=== PATIENT | female | born 1980 | race African-American/Black ===

== ENCOUNTER 2021-01-01 15:01 | Observation (INO) ==
[2021-01-01 16:58] LABS: Basophils % 0.1 % (0.0-0.8); Eosinophils % 0.6 % (0.00-10.9); Immature Granulocytes % 0.6 %; Immature Granulocytes Absolute 0.04 #; Lymphocytes # 1.2 10*3/uL (1.4-4.0); Lymphocytes % 17.3 % (21.3-54.2); Mean Corpuscular HGB Conc 24.8 GM/DL (32-36); Mean Corpuscular Volume 67.3 FL (87-102); Mean Platelet Volume 9.4 FL (9.6-12.0); Monocytes % 11.7 % (1.7-12.7); NRBC # 0.09 10*3/uL; Neutrophils % 69.7 % (38.7-73.9); Platelet Count 903 T/CUMM (130-400); Red Blood Count 1.68 MC/CUMM (3.8-5.5); Red Cell Distribution Width 36.7 % (9.3-17.3)
[2021-01-01 17:05] LABS: Hematocrit 11.3 VOL% (35.7-47.0); INR 1.1; PT Patient Result 12.4 SECS (10.5-12.0)
[2021-01-01 17:08] LABS: Hemoglobin 2.8 GM/DL (12.0-16.0)
[2021-01-01 17:13] LABS: Albumin 3.6 G/DL (3.4-5.0); Bilirubin,Total 0.4 MG/DL (0.20-1.00); Calcium 8.6 MG/DL (8.5-10.1); Osmolality,Calculated 274.5 MOS/KG (273-304); Potassium 3.8 MMOL/L (3.5-5.1); Total Protein 7.5 G/DL (6.4-8.2)
[2021-01-01] MEDS ORDERED: ONDANSETRON 4 MG/2 ML VIAL IV PRN (17:21)
[2021-01-01] MEDS ORDERED: GLUCAGON 1 MG VIAL IM PRN (17:21)
[2021-01-01] MEDS ORDERED: ACETAMINOPHEN 325 MG TABLET PO PRN (17:21)
[2021-01-01] MEDS ORDERED: DEXTROSE 50% 25 GM/50 ML VIAL IV PRN (17:21)
[2021-01-01] MEDS ORDERED: SODIUM CHLORIDE 0.9% 1,000 ML IV PRN ×3 (17:24→22:02)
[2021-01-01 17:41] LABS: Lymphocytes 21 % (20-55); Microcytosis 1+; Segmented Neutrophils 70 % (50-85); Total Cells Counted 100
[2021-01-01 17:42] LABS: Elliptocytes Few; Hypochromasia 3+; Target Cells 1+
[2021-01-01 17:43] LABS: Platelet Estimate Increased; Schistocytes 1+; Tear Drop Cells Few
[2021-01-01] MEDS ORDERED: NICOTINE 7 MG/24 HR PATCH TRANSDERM PRN (17:58)
[2021-01-01] MEDS ORDERED: chlordiazePOXIDE 10 MG CAPSULE PO PRN (17:58)
[2021-01-01] MEDS: SODIUM CHLORIDE 0.9% 1,000 ML IV SCH (18:50)
[2021-01-01 21:17] LABS: Hematocrit 20.9 VOL% (35.7-47.0)
[2021-01-01 21:26] LABS: Hemoglobin 6.1 GM/DL (12.0-16.0)
[2021-01-02] MEDS ORDERED: SODIUM CHLORIDE 0.9% 1,000 ML IV PRN (08:21)
[2021-01-02] MEDS: FOLIC ACID 1 MG TABLET PO SCH (09:28)
[2021-01-02] MEDS: THIAMINE 100 MG TABLET PO SCH (09:28)
[2021-01-02] MEDS: PANTOPRAZOLE 40 MG TABLET PO SCH (09:28)
[2021-01-02 10:02] LABS: Basophils # 0.1 10*3/uL (0.0-0.2); Basophils % 1.8 % (0.0-0.8); Eosinophils # 0.1 10*3/uL (0.0-0.87); Hematocrit 27.7 VOL% (35.7-47.0); Immature Granulocytes % 0.4 %; Immature Granulocytes Absolute 0.03 #; Lymphocytes # 1.4 10*3/uL (1.4-4.0); Lymphocytes % 18.3 % (21.3-54.2); Mean Corpuscular HGB Conc 30.7 GM/DL (32-36); Mean Corpuscular Volume 79.6 FL (87-102); Mean Platelet Volume 9.4 FL (9.6-12.0); NRBC # 0.17 10*3/uL; Neutrophils % 67.5 % (38.7-73.9); Platelet Count 756 T/CUMM (130-400); Red Cell Distribution Width 27.6 % (9.3-17.3); White Blood Count 7.7 T/CUMM (4-12)
[2021-01-02 10:06] LABS: Hemoglobin 8.5 GM/DL (12.0-16.0); Red Blood Count 3.48 MC/CUMM (3.8-5.5)
[2021-01-02 10:26] LABS: % Iron Saturation 3.4 % (18-50); Ferritin 5.9 ng/mL (8-252)
[2021-01-02 10:30] LABS: Folate 7.71 NG/ML (5.38-24.0); Vitamin B12 330 PG/ML (211-911)
[2021-01-02 10:34] LABS: Calcium 8.5 MG/DL (8.5-10.1); Osmolality,Calculated 276.5 MOS/KG (273-304); Potassium 3.5 MMOL/L (3.5-5.1)
[2021-01-02 11:03] LABS: Sedimentation Rate-Westergren 21 MM/HR (0-20)
[2021-01-02] MEDS: SODIUM CHLORIDE 0.9% 1,000 ML IV SCH (15:17)
[2021-01-02] MEDS ORDERED: ALUM/MAG/SIMETH/LIDO VISC 1:1 30 ML BOTTLE PO ONE (15:56)
[2021-01-02] MEDS ORDERED: FUROSEMIDE 20 MG/2 ML VIAL IV ONE (15:57)
[2021-01-03 05:45] LABS: Calcium 8.4 MG/DL (8.5-10.1); Potassium 3.6 MMOL/L (3.5-5.1)
[2021-01-03 07:41] LABS: Basophils # 0.1 10*3/uL (0.0-0.2); Basophils % 1.2 % (0.0-0.8); Eosinophils # 0.2 10*3/uL (0.0-0.87); Eosinophils % 1.5 % (0.00-10.9); Hematocrit 31.1 VOL% (35.7-47.0); Hemoglobin 9.4 GM/DL (12.0-16.0); Immature Granulocytes % 0.2 %; Immature Granulocytes Absolute 0.02 #; Lymphocytes # 1.8 10*3/uL (1.4-4.0); Lymphocytes % 18.9 % (21.3-54.2); Mean Corpuscular HGB Conc 30.2 GM/DL (32-36); Mean Corpuscular Volume 81.6 FL (87-102); Mean Platelet Volume 9.6 FL (9.6-12.0); Monocytes % 14.5 % (1.7-12.7); Neutrophils % 63.7 % (38.7-73.9); Platelet Count 632 T/CUMM (130-400); Red Blood Count 3.81 MC/CUMM (3.8-5.5); Red Cell Distribution Width 26.6 % (9.3-17.3); White Blood Count 9.7 T/CUMM (4-12)
[2021-01-03 08:04] LABS: Hypochromasia 1+; Microcytosis 1+; Platelet Estimate Increased
[2021-01-03] MEDS: PANTOPRAZOLE 40 MG TABLET PO SCH (09:17)
[2021-01-03] MEDS: FOLIC ACID 1 MG TABLET PO SCH (09:17)
[2021-01-03] MEDS: THIAMINE 100 MG TABLET PO SCH (09:18)
[2021-01-03 10:17] LABS: Hemoglobin A1 (Alkaline) 97.8 % (96.5-98.5); Hemoglobin A2 (Alkaline) 2.2 % (1.5-3.5)
[2021-01-03] MEDS: SODIUM CHLORIDE 0.9% 1,000 ML IV SCH (11:31)
[2021-01-04 06:26] LABS: Basophils # 0.1 10*3/uL (0.0-0.2); Basophils % 1.1 % (0.0-0.8); Eosinophils # 0.2 10*3/uL (0.0-0.87); Eosinophils % 1.9 % (0.00-10.9); Hematocrit 31.2 VOL% (35.7-47.0); Hemoglobin 9.6 GM/DL (12.0-16.0); Immature Granulocytes % 0.4 %; Immature Granulocytes Absolute 0.04 #; Lymphocytes # 1.7 10*3/uL (1.4-4.0); Lymphocytes % 16.5 % (21.3-54.2); Mean Corpuscular HGB Conc 30.8 GM/DL (32-36); Mean Corpuscular Volume 81.3 FL (87-102); Mean Platelet Volume 9.4 FL (9.6-12.0); NRBC # 0.08 10*3/uL; Neutrophils % 70.1 % (38.7-73.9); Platelet Count 565 T/CUMM (130-400); Red Blood Count 3.84 MC/CUMM (3.8-5.5); Red Cell Distribution Width 27.3 % (9.3-17.3); White Blood Count 10.2 T/CUMM (4-12)
[2021-01-04 06:38] LABS: Calcium 8.3 MG/DL (8.5-10.1); Osmolality,Calculated 276.5 MOS/KG (273-304); Potassium 3.7 MMOL/L (3.5-5.1)
[2021-01-04 06:46] LABS: Hypochromasia 1+; Microcytosis 1+
[2021-01-04 06:47] LABS: Ovalocytes Slight; Platelet Estimate Increased; Polychromasia Slight
[2021-01-04] MEDS: SODIUM CHLORIDE 0.9% 1,000 ML IV SCH (07:49)
[2021-01-04] MEDS: PANTOPRAZOLE 40 MG TABLET PO SCH (09:04)
[2021-01-04] MEDS: THIAMINE 100 MG TABLET PO SCH (09:04)
[2021-01-04] MEDS: FOLIC ACID 1 MG TABLET PO SCH (09:04)
[2021-01-05] MEDS: SODIUM CHLORIDE 0.9% 1,000 ML IV SCH (01:15)
[2021-01-05 05:10] LABS: Basophils # 0.1 10*3/uL (0.0-0.2); Basophils % 1.2 % (0.0-0.8); Eosinophils # 0.2 10*3/uL (0.0-0.87); Eosinophils % 2.3 % (0.00-10.9); Hematocrit 31.4 VOL% (35.7-47.0); Hemoglobin 9.2 GM/DL (12.0-16.0); Immature Granulocytes % 0.5 %; Immature Granulocytes Absolute 0.05 #; Lymphocytes # 1.7 10*3/uL (1.4-4.0); Lymphocytes % 17.9 % (21.3-54.2); Mean Corpuscular HGB Conc 29.3 GM/DL (32-36); Mean Corpuscular Volume 82.8 FL (87-102); Mean Platelet Volume 9.8 FL (9.6-12.0); Monocytes % 10.7 % (1.7-12.7); NRBC # 0.07 10*3/uL; Neutrophils % 67.4 % (38.7-73.9); Platelet Count 564 T/CUMM (130-400); Red Blood Count 3.79 MC/CUMM (3.8-5.5); Red Cell Distribution Width 27.9 % (9.3-17.3); White Blood Count 9.6 T/CUMM (4-12)
[2021-01-05 05:33] LABS: Calcium 8.2 MG/DL (8.5-10.1); Osmolality,Calculated 286.8 MOS/KG (273-304); Potassium 3.6 MMOL/L (3.5-5.1)
[2021-01-05] MEDS ORDERED: MAGNESIUM SULF RIDER 2 GM/50 ML PREMIX IV PRN (08:36)
[2021-01-05] MEDS ORDERED: MAGNESIUM SULF RIDER 4 GM/100 ML PREMIX IV PRN (08:36)
[2021-01-05] MEDS: FOLIC ACID 1 MG TABLET PO SCH (09:16)
[2021-01-05] MEDS: THIAMINE 100 MG TABLET PO SCH (09:16)
[2021-01-05] MEDS: PANTOPRAZOLE 40 MG TABLET PO SCH (09:16)
[2021-01-05 09:58] VITALS: BP 137/82
== END 2021-01-05 11:35 | disposition home or self-care (01) ==
LOC: N.EDINP 15:01 → N.ED 15:01 → N.TELES 18:08
PROVIDERS: ADMIT Internal Medicine; ATTEND Internal Medicine